=== PATIENT | male | born 1940 | race Caucasian/White ===

== ENCOUNTER 2017-06-18 16:37 | Inpatient (IN) | payer MEDICARE, OTHER ==
[2017-06-18] MEDS ORDERED: Sodium Chloride 0.9% 1,000 ML IV ONE ×2 (16:55→20:03)
--- NOTE | 2017-06-18 17:21 | ED Physician Chart ---
ED Chief Complaint/HPI - Patient Information Date Seen:: 06/18/17 Time Seen:: 17:00 Chief Complaint:: Weakness History of Present Illness:: onset x 2 days of weakness, dizziness, N/V x 3; no report of trauma, H/As, S/T, neck pain, cough, C/P, SOB, Abd. Pain, A/D/C, fever, chills, or urinary s/s Allergies:: Allergies Allergy/AdvReac Type Severity Reaction Status Date / Time No Known Allergies Allergy Verified 02/22/16 13:57 Vitals:: Vital Signs - 8 hr 06/18/17 17:00 Temp 97.2 F HR 80 RR 16 BP 107/75 O2 Sat % 100 Historian:: Patient, EMS Review:: Nurse's Note Reviewed, Old Chart Reviewed, EMS run form Reviewed <Mathieu Leal - Last Filed: 06/18/17 18:10> - Patient Information Allergies:: Allergies Allergy/AdvReac Type Severity Reaction Status Date / Time No Known Allergies Allergy Verified 02/22/16 13:57 Vitals:: Vital Signs - 8 hr 06/18/17 06/18/17 06/18/17 17:00 18:48 21:32 Temp 97.2 F 99 F 98.6 F HR 80 84 88 RR 16 18 17 BP 107/75 147/77 143/84 O2 Sat % 100 100 98 <Chad Sun - Last Filed: 06/18/17 23:32> ED Review of Systems - Review of Systems General/Constitutional: No fever, No chills, No weight loss, Weakness, No diaphoresis, No edema, No loss of appetite Skin: No skin lesions, No rash, No bruising Head: No headache, No light-headedness Eyes: No loss of vision, No pain, No diplopia ENT: No earache, No nasal drainage, No sore throat, No tinnitus Neck: No neck pain, No swelling, No thyromegaly, No stiffness, No mass noted Cardio Vascular: No chest pain, No palpitations, No PND, No orthopnea, No edema Pulmonary: No SOB, No cough, No sputum, No wheezing GI: Nausea, Vomiting, Diarrhea, No pain, No melena, No hematochezia, No constipation, No hematemesis G/U: No dysuria, No frequency, No hematuria Musculoskeletal: No bone or joint pain, No back pain, No muscle pain Endocrine: No polyuria, No polydipsia Psychiatric: Prior psych history, No depression, Anxiety, No suicidal ideation, No homicidal ideation, No auditory hallucination, No visual hallucination Hematopoietic: No bruising, No lymphadenopathy Allergic/Immuno: No urticaria, No angioedema Neurological: No syncope, No focal symptoms, Weakness, No paresthesia, No headache, No seizure, Dizziness, No confusion, Vertigo <Mathieu Leal - Last Filed: 06/18/17 18:10> ED Past Medical History - Past Medical History Obtainable: Yes Past Medical History: HTN, Dyslipidemia, Arthritis Family History: HTN Social History: Smoker, Alcohol, No Drug Use, Single, Care Facility Surgical History: None Psychiatricy History: Bipolar Medication: Reviewed <Mathieu Leal - Last Filed: 06/18/17 18:10> Family Medical History - Family Member Mother History Unknown: Yes Ethnicity: <Mathieu Leal - Last Filed: 06/18/17 18:10> ED Physical Exam - Physical Examination General/Constitutional: Awake, Well-developed, well-nourished, Alert, No distress, GCS 15, Non-toxic appearing, Ambulatory Head: Atraumatic Eyes: Lids, conjuctiva normal, PERRL, EOMI Skin: Nl inspection, No rash, No skin lesions, No ecchymosis, Well hydrated, No lymphadenopathy ENMT: External ears, nose nl, TM canals nl, Nasal exam nl, Lips, teeth, gums nl , Oropharynx nl, Tonsils nl Neck: Nontender, Full ROM w/o pain, No JVD, No nuchal rigidity, No bruit, No mass, No stridor Respiratory: Nl effort/Exclusion, Clear to Auscultation, No Wheeze/Rhonchi/Rales Cardio Vascular: RRR, No murmur, gallop, rubs, NL S1 S2, Carotid/Femoral/Distal pulses equal bilaterally GI: No organomegaly, No hernia, Normal BS's, Nondistended, No mass/bruits, No McBurney tenderness, Rectum exam nl Other GI comments:: + Epigastric Tenderness : No CVA tenderness Extremities: No tenderness or effusion, Full ROM, normal strength in all extremities, No edema, Normal digits & nails Neuro/Psych: Alert/oriented, DTR's symmetric, Normal sensory exam, Normal motor strength, Judgement/insight normal, Mood normal, Normal gait, No focal deficits Misc: Normal back, No paraspinal tenderness <Mathieu Leal - Last Filed: 06/18/17 18:10> ED Labs/Radiology/EKG Results - Lab Results Comments:: WBC: 12.4; H/H: + Anemia; Amylase: 831; Lipase: 1148; LFTs: Elevated <Mathieu Leal - Last Filed: 06/18/17 18:10> - Lab Results Results: Laboratory Tests 06/18/17 06/18/17 06/18/17 17:07 17:07 17:07 WBC 12.4 H RBC 4.65 Hgb 11.3 L Hct 35.0 L MCV 75.3 L MCH 24.3 L MCHC Differential 32.3 RDW 16.3 Plt Count 187 MPV 7.6 Band Neutrophils % 1 Neutrophils (Manual) 72 Lymphocytes 9 L Monocytes 18 H Eosinophils 0 Basophils 0 Microcytosis 2+ PT INR PTT (Actin FS) Sodium 136 Potassium 3.6 Chloride 102 Carbon Dioxide 23.9 Anion Gap 13.7 BUN 15 Creatinine 1.0 Est GFR ( Amer) TNP Est GFR (Non-Af Amer) TNP BUN/Creatinine Ratio 15.0 Glucose 115 H Whole Bld Lactic Acid Calcium 9.3 Total Bilirubin 1.1 H AST 135 H ALT 255 H Alkaline Phosphatase 257 H Creatine Kinase 28 L Troponin I B-Natriuretic Peptide 54.1 Total Protein 7.3 Albumin 4.1 L Globulin 3.2 Albumin/Globulin Ratio 1.3 Triglycerides 85 Cholesterol 172 LDL Cholesterol Direct 92 HDL Cholesterol 52 Amylase 831 H Lipase 1148 H Urine Source Urine Color Urine Clarity Urine pH Ur Specific [place] Urine Protein Urine Glucose (UA) Urine Ketones Urine Blood Urine Nitrate Urine Bilirubin Urine Urobilinogen Ur Leukocyte Esterase Urine RBC Urine WBC Ur Epithelial Cells Urine Bacteria Ethyl Alcohol 06/18/17 06/18/17 06/18/17 17:07 17:07 17:07 WBC RBC Hgb Hct MCV MCH MCHC Differential RDW Plt Count MPV Band Neutrophils % Neutrophils (Manual) Lymphocytes Monocytes Eosinophils Basophils Microcytosis PT 10.7 INR 1.03 PTT (Actin FS) 28.1 Sodium Potassium Chloride Carbon Dioxide Anion Gap BUN Creatinine Est GFR ( Amer) Est GFR (Non-Af Amer) BUN/Creatinine Ratio Glucose Whole Bld Lactic Acid 1.04 Calcium Total Bilirubin AST ALT Alkaline Phosphatase Creatine Kinase Troponin I 0.01 B-Natriuretic Peptide Total Protein Albumin Globulin Albumin/Globulin Ratio Triglycerides Cholesterol LDL Cholesterol Direct HDL Cholesterol Amylase Lipase Urine Source Urine Color Urine Clarity Urine pH Ur Specific [place] Urine Protein Urine Glucose (UA) Urine Ketones Urine Blood Urine Nitrate Urine Bilirubin Urine Urobilinogen Ur Leukocyte Esterase Urine RBC Urine WBC Ur Epithelial Cells Urine Bacteria Ethyl Alcohol 06/18/17 06/18/17 17:07 18:20 WBC RBC Hgb Hct MCV MCH MCHC Differential RDW Plt Count MPV Band Neutrophils % Neutrophils (Manual) Lymphocytes Monocytes Eosinophils Basophils Microcytosis PT INR PTT (Actin FS) Sodium Potassium Chloride Carbon Dioxide Anion Gap BUN Creatinine Est GFR ( Amer) Est GFR (Non-Af Amer) BUN/Creatinine Ratio Glucose Whole Bld Lactic Acid Calcium Total Bilirubin AST ALT Alkaline Phosphatase Creatine Kinase Troponin I B-Natriuretic Peptide Total Protein Albumin Globulin Albumin/Globulin Ratio Triglycerides Cholesterol LDL Cholesterol Direct HDL Cholesterol Amylase Lipase Urine Source [place] Urine Color DARK YELLOW Urine Clarity CLEAR Urine pH 6.5 Ur Specific [place] 1.025 Urine Protein 30 H Urine Glucose (UA) NEGATIVE Urine Ketones 15 H Urine Blood SMALL H Urine Nitrate NEGATIVE Urine Bilirubin NEGATIVE Urine Urobilinogen >=8.0 H Ur Leukocyte Esterase NEGATIVE Urine RBC 2-5 H Urine WBC 0-2 Ur Epithelial Cells RARE Urine Bacteria NONE SEEN Ethyl Alcohol < 10 - Radiology Results Results: CT abdomen: pneumobilia, pancreatitis <Chad Sun - Last Filed: 06/18/17 23:32> ED Septic Shock - . Is Septic Shock (SBP<90, OR Lactate>4 mmol\L) present?: No - <6hrs of presentation: Vital Signs: Vital Signs - 8 hr 06/18/17 17:00 Temp 97.2 F HR 80 RR 16 BP 107/75 O2 Sat % 100 <Mathieu Leal - Last Filed: 06/18/17 18:10> - . Is Septic Shock (SBP<90, OR Lactate>4 mmol\L) present?: No - <6hrs of presentation: Vital Signs: Vital Signs - 8 hr 06/18/17 06/18/17 06/18/17 17:00 18:48 21:32 Temp 97.2 F 99 F 98.6 F HR 80 84 88 RR 16 18 17 BP 107/75 147/77 143/84 O2 Sat % 100 100 98 <Chad Sun - Last Filed: 06/18/17 23:32> ED Reassessment (Disposition) - Diagnosis Diagnosis:: Dx: Abdominal Pain; N/V; Pancreatitis; Anemia; Leukocytosis; Hepatiitis; Cholecystitis <Mathieu Leal - Last Filed: 06/18/17 18:10> - Reassessment Reassessment:: Assessment: Leukocytosis, pneumobilia, pancreatitis Plan: Rocephin, Flagyl, NS IV bolus, admit to med surg Reassessment Condition:: Improved - Patient Disposition Discharge/Transfer:: Acute Care w/in this hosp Admitting Medical Physician:: Gene Quintanilla <Chad Sun - Last Filed: 06/18/17 23:32> ED Discharge Plan <Mathieu Leal - Last Filed: 06/18/17 18:10> <Chad Sun - Last Filed: 06/18/17 23:32> - Patient Disposition Admit/Discharge/Transfer: Acute Care w/in this hosp
[2017-06-18 17:28] LABS: HEMOGLOBIN 11.3 gm/dL (12-16); MANUAL DIFF REQUIRED? YES; MEAN CELL VOLUME 75.3 fl (80-99); MEAN CORPUSCULAR HEMOGLOBIN 24.3 pg (27.0-31.0); MEAN CORPUSCULAR HGB CONC 32.3 pg (28.0-36.0); MEAN PLATELET VOLUME 7.6 fl; PLATELET COUNT 187 Th/cmm (150-400); RED BLOOD COUNT 4.65 Mil/cmm (3.80-5.80); RED CELL DISTRIBUTION WIDTH 16.3 % (11.5-20.0)
[2017-06-18 17:37] LABS: INR 1.03 (0.5-1.4); PROTHROMBIN TIME (TEST) 10.7 SECONDS (9.5-11.5)
[2017-06-18 17:38] LABS: WHITE BLOOD COUNT 12.4 Th/cmm (4.8-10.8)
[2017-06-18 17:44] LABS: ALB/GLOB RATIO 1.3 (1.0-1.8); ALBUMIN 4.1 gm/dL (4.2-5.5); ALKALINE PHOSPHATASE 257 U/L (34-104); AMYLASE SERUM 831 U/L (29-103); ANION GAP 13.7 (7.0-16.0); BILIRUBIN,TOTAL 1.1 mg/dL (0.3-1.0); BUN - UREA NITROGEN 15 mg/dL (7-25); CALCIUM SERUM 9.3 mg/dL (8.6-10.3); CARBON DIOXIDE 23.9 mEq/L (21.0-31.0); CHLORIDE 102 mEq/L (98-107); CHOLESTEROL 172 mg/dL (<200); CREATININE KINASE 28 U/L (30-223); GLUCOSE 115 mg/dL (70-105); HDL -HIGH DENSITY LIPOPROTEIN 52 mg/dL (23-92); POTASSIUM SERUM 3.6 mEq/L (3.5-5.1); SGOT 135 U/L (13-39); SGPT/ALT 255 U/L (7-52); SODIUM SERUM 136 mEq/L (136-145); TOTAL PROTEIN,SERUM 7.3 gm/dL (6.0-8.3); TRIGLYCERIDES 85 mg/dL (<150)
[2017-06-18 17:57] LABS: LIPASE 1148 U/L (11-82)
[2017-06-18 18:22] LABS: BAND NEUTROPHILE 1 % (0-10); BASOPHIL 0 % (0-3); EOSINOPHIL 0 % (0-5); LYMPHOCYTE 9 % (20-50); MONOCYTE 18 % (2-10); NEUTROPHILS 72 % (40-80); TOTAL CELLS COUNTED 100
[2017-06-18 18:36] LABS: URINE MICROSCOPIC INDICATED? YES; URINE SOURCE MIDSTREAM
[2017-06-18 18:37] LABS: URINE BLOOD SMALL (NEGATIVE); URINE GLUCOSE (UA) NEGATIVE (NEGATIVE); URINE KETONE 15 mg/dL (NEGATIVE); URINE LEUKOCYTE ESTERASE NEGATIVE (NEGATIVE); URINE NITRATE NEGATIVE (NEGATIVE); URINE PH 6.5 (4.6 - 8.0); URINE PROTEIN 30 mg/dL (NEGATIVE); URINE UROBILINOGEN >=8.0 E.U./dL (0.2 - 1.0)
[2017-06-18 18:52] LABS: URINE CLARITY CLEAR (CLEAR); URINE COLOR DARK YELLOW
[2017-06-18 18:53] LABS: URINE BACTERIA NONE SEEN /hpf (NONE SEEN); URINE BILIRUBIN NEGATIVE (NEGATIVE); URINE EPITHELIAL CELLS RARE /lpf (FEW); URINE WBC 0-2 /hpf (0-5)
[2017-06-18] MEDS ORDERED: cefTRIAXone 1 GM in Sodium Chloride 0.9% 50 ML IV ONE (20:01)
[2017-06-18] MEDS ORDERED: metroNIDAZOLE 500mg/NS 100mL 500 MG/100 ML BAG IV ONE ×2 (20:02→20:33)
[2017-06-18 22:17] VITALS: BP 121/68
[2017-06-18] MEDS: D5-0.45NS 1,000 ML IV SCH (22:50)
[2017-06-18] MEDS ORDERED: Piperacillin Sodium/Tazobact 3.375 gm Vial IV ONE (23:19)
[2017-06-19] MEDS ORDERED: Piperacillin Sodium/Tazobact 3.375 gm Vial IV ONE (05:24)
--- NOTE | 2017-06-19 08:07 | Diagnostic Imaging Report ---
CHEST X-RAY: AP view INDICATION: Weakness COMPARISON: Chest x-ray 02/22/2016 FINDINGS: Multiple old displaced right rib fractures are noted. No focal consolidation or effusions. There is mild elevation of the right hemidiaphragm. Heart size is normal. Atherosclerosis is noted. Degenerative changes spine and shoulders are noted. IMPRESSION: No focal consolidation identified Redemonstration of multiple displaced old right rib fractures. No evidence of pneumothorax.
--- NOTE | 2017-06-19 08:17 | Diagnostic Imaging Report ---
Exam: CT examination abdomen pelvis HISTORY: Abdominal pain nausea vomiting Total DLP equals 564 CTDI equals 11.1 Findings: Multiple contiguous thin section of the abdomen pelvis obtained from lower thorax to pubic symphysis with without the administration of intravenous or oral contrast material. The study compared to prior 02/24/2016. The study demonstrates deformity of the right rib cage with old fractures. There is evidence of pleural thickening bilaterally question small effusions. There is evidence of basilar atelectasis. There is evidence for pneumobilia. Hernia is noted. The spleen is enlarged. The adrenal glands are normal. The kidneys demonstrate no evidence of obstructive uropathy or nephrolithiasis. Abdominal aorta is calcified. The visualized pancreas history smell edema around the tail pancreatitis cannot be excluded clinical correlation recommended. There is evidence for fecal impaction in lower: With the fecal impaction the rectum. Mild diverticular disease is noted without diverticulitis. There is no evidence of free fluid collection. The urinary bladder is distended. Prostate gland is enlarged. There is evidence of scoliosis of the lumbar spine to the right degenerative changes of lumbar cervical spine appreciated. IMPRESSION: Pleural thickening bilaterally, small effusions cannot be excluded. Hiatal hernia Atherosclerotic vascular calcifications. Pneumobilia Fullness and inflammatory induration of the mesentery around the tail of the pancreas, pancreatitis cannot be excluded clinical correlation recommended. Mild diverticulosis Fecal impaction the rectum
[2017-06-19 10:30] LABS: BASOPHILE ABSOLUTE 0.4 Th/cumm (0-0.2); HEMATOCRIT 31.5 % (41.0-60); HEMOGLOBIN 10.2 gm/dL (12-16); LYMPHOCYTE ABSOLUTE 1.1 Th/cmm (1.5-3.0); MEAN CELL VOLUME 75.8 fl (80-99); MEAN CORPUSCULAR HEMOGLOBIN 24.6 pg (27.0-31.0); MEAN CORPUSCULAR HGB CONC 32.4 pg (28.0-36.0); MEAN PLATELET VOLUME 7.4 fl; MONOCYTE ABSOLUTE 2.7 Th/cmm (0.3-1.0); NEUTROPHILE ABSOLUTE 7.5 Th/cmm (1.8-8.0); PLATELET COUNT 156 Th/cmm (150-400); RED BLOOD COUNT 4.15 Mil/cmm (3.80-5.80); RED CELL DISTRIBUTION WIDTH 16.5 % (11.5-20.0); WHITE BLOOD COUNT 11.7 Th/cmm (4.8-10.8)
[2017-06-19 10:33] LABS: % BASOPHILS 3.2 % (0.0-2.0); % EOSINOPHILS 0.3 % (0.0-5.0); % LYMPHOCYTES 9.7 % (20.0-50.0); % MONOCYTES 22.9 % (2.0-10.0); % NEUTROPHILS 63.9 % (40.0-80.0)
[2017-06-19 10:49] LABS: ALB/GLOB RATIO 1.2 (1.0-1.8); ALBUMIN 3.5 gm/dL (4.2-5.5); ALKALINE PHOSPHATASE 175 U/L (34-104); AMYLASE SERUM 201 U/L (29-103); ANION GAP 12.1 (7.0-16.0); BILIRUBIN,TOTAL 1.1 mg/dL (0.3-1.0); BUN - UREA NITROGEN 11 mg/dL (7-25); CALCIUM SERUM 8.2 mg/dL (8.6-10.3); CARBON DIOXIDE 22.2 mEq/L (21.0-31.0); CHLORIDE 102 mEq/L (98-107); GLUCOSE 116 mg/dL (70-105); LIPASE 219 U/L (11-82); POTASSIUM SERUM 3.3 mEq/L (3.5-5.1); SGOT 48 U/L (13-39); SGPT/ALT 150 U/L (7-52); SODIUM SERUM 133 mEq/L (136-145); TOTAL PROTEIN,SERUM 6.5 gm/dL (6.0-8.3)
[2017-06-19] MEDS: D5-0.45NS 1,000 ML IV SCH ×2 (11:37→23:48)
--- NOTE | 2017-06-19 11:55 | History & Physical ---
ADMIT DATE: 06/19/2017 PATIENT IDENTIFICATION: A 77-year-old male. CHIEF COMPLAINT: Abdominal pain, nausea, and vomiting. HISTORY OF PRESENT ILLNESS: A 77-year-old [place]iqu[place] male who was a resident of [facility], has been followed by myself and my nurse practitioner, noticed by nursing staff that the patient has been having vomiting and abdominal pain with generalized weakness. The patient was not to his baseline as compared to his previous baseline mental status for the last 2 days. The patient was sent to Emergency Room where the patient was seen by Emergency Room Andrea. CT scan of the abdomen and pelvis was done, which did reveal the patient had a hiatal hernia, atherosclerotic vascular calcification, fullness, and inflammatory induration of the mesentery around the tail of pancreas along with pneumobilia diverticulosis, and fecal impaction was noted as well. The patient was also noted to have elevated WBC count with abnormal liver function tests. The patient is now being admitted to the hospital for further treatment. PAST MEDICAL HISTORY: Remarkable for: 1. Osteoarthritis. 2. DJD. 3. Restless leg syndrome. 4. Anxiety disorder. MEDICATIONS AT HOME: Taking multivitamin, folic acid, thiamine, [place], and Requip. ALLERGIES: The patient is not allergic to any medication. SOCIAL HISTORY: He [facility] in a [facility]. The patient denies any smoking cigarette, used to drink alcohol socially. FAMILY MEDICAL HISTORY: Negative for diabetes, hypertension, kidney, or liver disease. REVIEW OF SYSTEMS: The patient has a poor appetite. Denies any headache, blurred vision, double vision, dysphagia. Denies any chest pain, denies any shortness of breath. Denies any hematemesis. Denies any hematochezia, melena, seizure, or syncopal episode. PHYSICAL EXAMINATION: GENERAL: The patient is alert, awake, oriented, lying in the bed without any acute distress. VITAL SIGNS: Temperature 99, pulse is 80, respiratory rate 18, blood pressure 130/80. HEENT: Normocephalic, atraumatic. Extraocular muscles are intact. Tongue was pink and coated. Poor dentition noted. No oral lesion, no exudate. No sinus tenderness. External auditory canal and tympanic membranes are well visualized. NECK: Supple, no JVD, no hepatojugular reflex. No lymphadenopathy, thyromegaly or carotid bruit. HEART: Both heart sounds are regular. No S3, no S4, no murmur. CHEST: Lungs equal in expansion, no expiratory wheezing. ABDOMEN: Soft. Significant tenderness at the epigastric area and right upper quadrant area noted. Bowel sounds are present. No palpable mass. EXTREMITIES: No edema, no cyanosis, no clubbing. Pulses are +2. No calf tenderness noted. NEUROLOGIC: Limited, but nonfocal. LABORATORY DATA: Available lab and radiological study has been reviewed. CLINICAL IMPRESSION: 1. Acute pancreatitis. 2. Abnormal liver function tests with pneumobilia. CT scan of the abdomen and pelvis needs to rule out for cholelithiasis with common bile duct stone. 3. Fecal impaction. 4. Leukocytosis. 5. Degenerative joint disease. 6. Benign prostatic hypertrophy. 7. Restless leg syndrome. 8. Gastroesophageal reflux disease and gastritis. PLAN: 1. Admit this patient to Med/Surg floor. 2. N.p.o. 3. IV fluid. 4. IV antibiotic. 5. Proton pump inhibitor. 6. Symptoms management. 7. Abdominal ultrasound and HIDA scan. 8. GI consultation. 9. Follow lab. 10. Follow consult recommendation. 11. Appropriate home medicine reconciliation. 12. Further recommendation once other lab data are available. 13. Care plan reviewed and discussed with the patient and RN. JOB# [id number]
--- NOTE | 2017-06-19 12:10 | Diagnostic Imaging Report ---
Ultrasound abdomen HISTORY: Gallstones, note is made of diffuse pneumobilia. The patient's gallbladder was not visualized on recent CT examination. COMPARISON: CT abdomen and pelvis on 06/18/2017 Technique: Sonography of the abdomen was performed in multiple planes. FINDINGS: Exam is limited due to bowel gas and body habitus. The liver demonstrates normal echogenicity and measures 15.3 cm. The liver margin is not well-defined, however, no evidence of focal lesions. The gallbladder was not visualized. The common bile duct was also not well visualized. Assessment of pancreas is limited due to bowel gas. Limited assessment of the kidneys demonstrate no evidence of hydronephrosis. Assessment for focal lesions was limited on this exam. The spleen measures 11.4 cm. The visualized portion of the abdominal aorta within normal limits in size. IMPRESSION: Limited exam due to bowel gas and body habitus. The gallbladder was not visualized. Note that the gallbladder was also not visualized on recent CT examination. Diffuse pneumobilia was also noted on recent CT exam. The patient may be status post cholecystectomy. Please correlate with patient's clinical and surgical history. The common bile duct was also not visualized. Note was also made of diffuse air in the common bile duct on recent CT examination.
[2017-06-19] MEDS: Morphine Sulfate 4 mg/mL 1mL Syr IVP PRN (20:25)
--- NOTE | 2017-06-20 00:48 | Consultation ---
DATE OF CONSULTATION: 06/19/2017 REASON FOR CONSULTATION: Pancreatitis. HISTORY OF PRESENT ILLNESS: This consult was obtained through the request of Dr. Quintanilla for this 77-year-old with history of osteoarthritis, degenerative joint disease, anxiety, who was admitted for a couple of days of nausea, vomiting, abdominal pain, and right now he feels much better, with less pain and no more nausea or vomiting. The patient denies any prior episodes. He denies any previous surgeries, even though the x-ray showed pneumobilia. The patient denies having any fever or weight loss. PAST MEDICAL HISTORY: Degenerative joint disease, osteoarthritis, anxiety disorder. PAST SURGICAL HISTORY: Denies. SOCIAL HISTORY: Nonsmoker. Drinks a fifth every 1-2 weeks. Denies drug abuse. FAMILY HISTORY: Noncontributory. MEDICATIONS: At home, multivitamin, folic acid, thiamine, [place], Requip. ALLERGIES: No known drug allergies. REVIEW OF SYSTEMS: As stated above. Denies any abdominal pain, nausea, vomiting, diarrhea, constipation, bleeding. PHYSICAL EXAMINATION: GENERAL: The patient is awake, oriented to self, place, and time, in no acute distress. VITAL SIGNS: Blood pressure is 119/61, heart rate 60, respiratory rate 18, temperature is 98.7, with T-max 100.9. HEAD AND NECK: Pupils reactive to light. Extraocular muscles intact. Sclerae are anicteric. Conjunctivae not pale. Oral cavity, no lesion. NECK: Supple. CHEST: Good air entry. LUNGS: Clear to auscultation. CARDIOVASCULAR: Regular rate and rhythm. No murmur or gallop. ABDOMEN: Soft, positive bowel sounds, not tender, not distended. EXTREMITIES: Lower extremities, no edema. CENTRAL NERVOUS SYSTEM: Grossly nonfocal. LABORATORY DATA: Bilirubin is 1.1, AST 48 down from 135, ALT 150 down from 255, alkaline phosphatase 175 down from 257, and lipase on presentation was 1148 now is 219. X-ray as stated above showed pneumobilia, no visualization of the gallbladder. IMPRESSION: A 77-year-old who has pancreatitis and pneumobilia. ASSESSMENT AND PLAN: Abdominal pain, nausea, vomiting and elevation of lipase consistent with pancreatitis, most likely etiology would be common bile duct stones, but cannot exclude autoimmune, cannot exclude masses, but given the pneumobilia common bile duct stones would be the first on the list, so we will recheck labs in the morning including liver enzymes and lipase. We will check MRCP and then further recommendations to follow. ____ pneumobilia, this is consistent with either previous intervention or instrumentation of the bile duct either by surgery or by scope or some sort of internal fistulas. We will get an MRCP and then further recommendations to follow. If patient is better, then we will start feeding. Other medical problems such as osteoarthritis, degenerative joint disease, anxiety, etc., as per Dr. Quintanilla. Thank you, Dr. Quintanilla for allowing me to participate in the care of the patient. If you have any further questions, please let me know. JOB# [id number]
--- NOTE | 2017-06-20 07:42 | Diagnostic Imaging Report ---
Radionuclide biliary scan (HIDA scan) HISTORY: Pain 4.9 mCi technetium labeled biliary agent used in the exam. The exam demonstrates normal hepatic uptake and clearance. There is normal excretion of nuclide into the common bile duct and small bowel. The gallbladder is not identified. The findings should be correlated with the patient's surgical history. (Supposedly prior cholecystectomy). IMPRESSION: 1. Nonvisualization of the gallbladder. This should be confirmed with patient's surgical history of a prior cholecystectomy.
[2017-06-20 11:29] LABS: BASOPHILE ABSOLUTE 0.1 Th/cumm (0-0.2); EOSINOPHILE ABSOLUTE 0.1 Th/cmm (0.1-0.4); LYMPHOCYTE ABSOLUTE 0.9 Th/cmm (1.5-3.0); MANUAL DIFF REQUIRED? YES; MEAN CELL VOLUME 74.5 fl (80-99); MEAN CORPUSCULAR HEMOGLOBIN 23.9 pg (27.0-31.0); MEAN CORPUSCULAR HGB CONC 32.1 pg (28.0-36.0); MEAN PLATELET VOLUME 7.4 fl; MONOCYTE ABSOLUTE 1.5 Th/cmm (0.3-1.0); NEUTROPHILE ABSOLUTE 4.1 Th/cmm (1.8-8.0); PLATELET COUNT 138 Th/cmm (150-400); RED BLOOD COUNT 3.76 Mil/cmm (3.80-5.80); RED CELL DISTRIBUTION WIDTH 16.7 % (11.5-20.0); WHITE BLOOD COUNT 6.7 Th/cmm (4.8-10.8)
[2017-06-20 11:47] LABS: ALB/GLOB RATIO 1.1 (1.0-1.8); ALBUMIN 3.3 gm/dL (4.2-5.5); ALKALINE PHOSPHATASE 133 U/L (34-104); ANION GAP 11.5 (7.0-16.0); BILIRUBIN,TOTAL 0.8 mg/dL (0.3-1.0); BUN - UREA NITROGEN 8 mg/dL (7-25); CALCIUM SERUM 7.9 mg/dL (8.6-10.3); CARBON DIOXIDE 20.5 mEq/L (21.0-31.0); CHLORIDE 104 mEq/L (98-107); CHOLESTEROL 126 mg/dL (<200); CREATININE - SERUM 0.9 mg/dL (0.7-1.3); GLUCOSE 113 mg/dL (70-105); HDL -HIGH DENSITY LIPOPROTEIN 29 mg/dL (23-92); LIPASE 80 U/L (11-82); SGOT 21 U/L (13-39); SGPT/ALT 95 U/L (7-52); SODIUM SERUM 133 mEq/L (136-145); TOTAL PROTEIN,SERUM 6.2 gm/dL (6.0-8.3); TRIGLYCERIDES 98 mg/dL (<150)
[2017-06-20 12:07] LABS: BAND NEUTROPHILE 1 % (0-10); EOSINOPHIL 2 % (0-5); LYMPHOCYTE 12 % (20-50); MONOCYTE 21 % (2-10); NEUTROPHILS 64 % (40-80); PLATELET ESTIMATE ADEQUATE (NORMAL); TOTAL CELLS COUNTED 100
[2017-06-20] MEDS ORDERED: Potassium Chloride 20 mEq ER Tab PO ONE (12:50)
--- NOTE | 2017-06-20 14:34 | Diagnostic Imaging Report ---
Magnetic Resonance Cholepancreatography (MRCP) HISTORY: Pain, pneumobilia Multiple MRI sequences including 3-D high-resolution thin/thick slab, SPGR were utilized. The exam is very limited due to motion artifact. The gallbladder is not identified. Findings consistent with a prior cholecystectomy. There is suboptimal delineation and visualization of the common bile duct. No obvious dilatation. No intrahepatic biliary dilatation. There is partial visualization of the pancreatic duct appears normal. No focal hepatic parenchymal lesions are seen. The spleen appears normal. No focal parenchymal abnormality seen within the pancreas. There is a moderate to large hiatal hernia seen. IMPRESSION: 1. Very limited exam due to motion artifact 2. Nonvisualization of the gallbladder presumably related to prior surgery. 3. Poor visualization of the common bile duct. No definite biliary dilatation is seen. 4. Hiatal hernia
[2017-06-20] MEDS: D5-0.45NS 1,000 ML IV SCH (16:14)
--- NOTE | 2017-06-20 21:32 | Progress Notes ---
DATE: SUBJECTIVE: The patient seen and examined. The patient has no new complaint. The patient now on clear liquid diet. HIDA scan was negative for common bile duct obstruction. The patient is scheduled to have MRCP done. The patient currently denies any new complaint. PHYSICAL EXAMINATION: VITAL SIGNS: Temperature 97.4, pulse 60, respiratory rate 18, blood pressure 116/68. HEENT: No facial asymmetry. NECK: Supple, no JVD. HEART: Regular, no murmur. CHEST AND LUNGS: Equal in expansion, no wheezing, no crackles. ABDOMEN: Soft. Epigastric tenderness noted. Bowel sounds are present. EXTREMITIES: No edema. NEUROLOGIC: Nonfocal. CLINICAL IMPRESSION: 1. Pancreatitis. 2. Pneumobilia. 3. Hypokalemia. 4. Degenerative joint disease. 5. Gastroesophageal reflux disease. 6. Chronic pain syndrome. 7. Benign prostatic hypertrophy. PLAN: 1. MRCP is currently pending. 2. Clear liquids to be continued. 3. Replace potassium. 4. Follow GI recommendation. 5. Continue other medicine as prescribed. 6. Follow up lab. 7. Follow up consult is recommendation. 8. Care plan review and discussed. JOB# [id number]
[2017-06-21] MEDS: D5-0.45NS 1,000 ML IV SCH ×2 (03:35→17:38)
[2017-06-21] MEDS: Morphine Sulfate 4 mg/mL 1mL Syr IVP PRN (08:10)
--- NOTE | 2017-06-21 09:46 | Progress Notes ---
DATE: 06/21/2017 SUBJECTIVE: The patient seen and examined. The patient is lying in the bed. The patient did have MRCP, which was unremarkable. The patient currently denies any chest pain, shortness of breath, palpitation, or dizziness. The patient is currently on clear liquid diet, tolerating fairly well. The patient complained of diffuse joint pain. PHYSICAL EXAMINATION: VITAL SIGNS: Temperature 96.3, pulse 62, respiratory rate 18, blood pressure 130/78. HEENT: No facial asymmetry. NECK: Supple, no JVD. HEART: Regular, no murmur. CHEST: Lungs equal in expansion, no wheezing, no crackles. ABDOMEN: Soft. No guarding, rigidity. No tenderness. Bowel sounds are present. EXTREMITIES: No edema. NEUROLOGICAL: Nonfocal. AVAILABLE DIAGNOSTIC DATA: White count 6.7, hemoglobin 9, platelet count 138. Potassium of 3, BUN and creatinine ___ 0.9. LFT has come down to AST 121, ALT is 95, alkaline phosphatase of 133. CLINICAL IMPRESSION: 1. Pneumobilia. 2. Abnormal liver function tests. 3. Pancreatitis, resolved. 4. Diffuse degenerative joint disease. 5. Benign prostatic hypertrophy. 6. Microcytic hypochromic anemia. 7. Degenerative joint disease. PLAN: 1. Replace potassiums. 2. Advance diet. 3. Decrease IV fluid. 4. Symptoms management for joint pain. 5. Anemia workup. 6. Increase activity. 7. General nursing care. 8. Follow lab. 9. The patient tolerated fairly well, discharge planning to home. JOB# [id number]
[2017-06-21] MEDS ORDERED: Potassium Chloride 20 mEq ER Tab PO ONE (11:00)
[2017-06-21] MEDS ORDERED: Probiotic Screen MC PRN (11:17)
[2017-06-22] MEDS: D5-0.45NS 1,000 ML IV SCH (06:51)
[2017-06-22 08:07] LABS: IRON LC 19 ug/dL (38-169); TIBC (LC) 257 ug/dL (250-450); UIBC 238 ug/dL (111-343)
[2017-06-22] MEDS: Hydrocodone/APAP 10 mg/325 mg Tab PO PRN ×2 (08:15→15:02)
[2017-06-22] MEDS ORDERED: Lactobacillus Rhamnosus GG 15 Billion CFU CAP.SPRINK PO SCH (09:00)
[2017-06-22 09:36] LABS: % BASOPHILS 0.9 % (0.0-2.0); % EOSINOPHILS 1.2 % (0.0-5.0); % MONOCYTES 14.6 % (2.0-10.0); % NEUTROPHILS 62.3 % (40.0-80.0); BASOPHILE ABSOLUTE 0.1 Th/cumm (0-0.2); EOSINOPHILE ABSOLUTE 0.1 Th/cmm (0.1-0.4); HEMATOCRIT 30.8 % (41.0-60); LYMPHOCYTE ABSOLUTE 1.3 Th/cmm (1.5-3.0); MEAN CELL VOLUME 75.3 fl (80-99); MEAN CORPUSCULAR HEMOGLOBIN 24.3 pg (27.0-31.0); MEAN CORPUSCULAR HGB CONC 32.3 pg (28.0-36.0); MONOCYTE ABSOLUTE 0.9 Th/cmm (0.3-1.0); PLATELET COUNT 161 Th/cmm (150-400); RED CELL DISTRIBUTION WIDTH 16.7 % (11.5-20.0); WHITE BLOOD COUNT 6.4 Th/cmm (4.8-10.8)
[2017-06-22 09:52] LABS: ALB/GLOB RATIO 1.1 (1.0-1.8); ALBUMIN 3.5 gm/dL (4.2-5.5); ALKALINE PHOSPHATASE 108 U/L (34-104); ANION GAP 13.5 (7.0-16.0); BILIRUBIN,TOTAL 0.6 mg/dL (0.3-1.0); BUN - UREA NITROGEN 5 mg/dL (7-25); CALCIUM SERUM 8.3 mg/dL (8.6-10.3); CARBON DIOXIDE 19.9 mEq/L (21.0-31.0); CHLORIDE 106 mEq/L (98-107); GLUCOSE 218 mg/dL (70-105); POTASSIUM SERUM 3.4 mEq/L (3.5-5.1); SGOT 19 U/L (13-39); SGPT/ALT 64 U/L (7-52); SODIUM SERUM 136 mEq/L (136-145); TOTAL PROTEIN,SERUM 6.7 gm/dL (6.0-8.3)
[2017-06-22] MEDS ORDERED: Potassium Chloride 20 mEq ER Tab PO ONE (11:21)
[2017-06-22] MEDS ORDERED: Polyvinyl Alcohol Ophth Soln 15 mL Bottle EACH EYE PRN (11:22)
--- NOTE | 2017-06-22 12:18 | Discharge Summary ---
DATE OF DISCHARGE: 06/22/2017 DATE OF ADMISSION: 06/18/2017 DATE OF DISCHARGE: 06/22/2017 PRINCIPAL DIAGNOSES: 1. Acute pancreatitis. 2. Abnormal liver function test with pneumobilia. 3. Fecal impaction. 4. Leukocytosis. 5. Atherosclerotic heart disease. 6. Degenerative joint disease. 7. Benign prostatic hypertrophy. 8. Gastroesophageal reflux disease. 9. Restless leg syndrome. BRIEF STATEMENT FOR THE REASON FOR ADMISSION: A 77-year-old [place] male sent to Emergency Room for abdominal pain, nausea and vomiting. After being evaluated, the patient was admitted in the hospital for the treatment. Please refer to my H and P for further information. HOSPITAL COURSE: The patient was admitted to Med/Surg floor. The patient was kept n.p.o., IV fluid, IV antibiotic along with proton pump inhibitor was started. Symptomatic therapy was provided as well. GI consult and HIDA scan was also ordered. The patient was seen by agency director. The patient did have MRCP, which was unremarkable. The patient did have followup lab, which continues to show improvement of his liver function along with resolution of the lipase as well. The patient was placed on p.o. clear liquid diet, which was advanced to as tolerated as well. The patient tolerated p.o. well. The patient did have microcytic hypochromic anemia, which I decided to have workup to be done as an outpatient as well. The patient did have electrolyte imbalance, which was corrected as well. The patient is discharged back to [facility] in stable condition where the patient will be followed by myself. At the time of discharge, all of his meds were reconciled. JOB# [id number]
[2017-06-22 21:39] LABS: A1C % 6.5 % (4.0-6.0)
--- NOTE | 2017-06-23 06:44 | Progress Notes ---
DATE: 06/22/2017 SUBJECTIVE: The patient seen and examined. The patient is complaining of itchiness. The patient otherwise denies any chest pain, shortness of breath, palpitation, or dizziness. The patient is able to eat fairly p.o. well. OBJECTIVE: On today's exam; VITAL SIGNS: Reviewed. HEENT: Poor dentition. NECK: Supple, no JVD. HEART: Regular, no murmur. CHEST AND LUNGS: Equal in expansion, no wheezing, no crackles. ABDOMEN: Soft, no guarding or rigidity. Bowel sounds are present. No palpable mass. EXTREMITIES: No edema. NEUROLOGIC: Nonfocal. LABORATORY DATA: The patient's lipase is reported normal in ED, which was done yesterday. Potassium 3.4, AST, ALT is 64 and 108, which was downgoing trend. Hemoglobin of 10.0 with a platelet count of 161. CLINICAL IMPRESSION: 1. Acute pancreatitis, resolved. 2. Abnormal liver function tests, improving. 3. Pneumobilia, MRCP is unremarkable. 4. Degenerative joint disease. 5. Benign prostatic hypertrophy. 6. Debility. 7. Itching probably from Zosyn. PLAN: The patient is to discontinue antibiotic for now. I discontinued IV fluid as well. Discharged to [facility]. The patient will be placed on a PT/OT as well as a continuation of other medication. The patient will be followed by myself. JOB# [id number]
[2017-06-25 10:17] LABS: ANTI-NUCLEAR AB SCREEN Negative
== END 2017-06-22 15:15 | DRG 444 ==
LOC: ER 16:37 → MSI 21:38
PROVIDERS: ADMIT Internal Medicine; ATTEND Internal Medicine
DX: K83.8 Other specified diseases of biliary tract (principal); K85.90 Acute pancreatitis without necrosis or infection, unspecified; K56.41 Fecal impaction; M19.90 Unspecified osteoarthritis, unspecified site; N40.0 Benign prostatic hyperplasia without lower urinary tract symptoms; G25.81 Restless legs syndrome; K21.9 Gastro-esophageal reflux disease without esophagitis; K29.70 Gastritis, unspecified, without bleeding; K75.9 Inflammatory liver disease, unspecified; K81.9 Cholecystitis, unspecified; F41.9 Anxiety disorder, unspecified; E87.6 Hypokalemia; G89.4 Chronic pain syndrome; D50.9 Iron deficiency anemia, unspecified; I25.10 Atherosclerotic heart disease of native coronary artery without angina pectoris; E78.5 Hyperlipidemia, unspecified; F31.9 Bipolar disorder, unspecified; I10 Essential (primary) hypertension; K57.90 Diverticulosis of intestine, part unspecified, without perforation or abscess without bleeding
CPT/HCPCS: 36415-UA; 71045-TC; 76700-TC; 78226-TC; 80053-TC; 80061-TC; 80320-TC; 81001-TC; 82150-TC; 82550-TC; 83036-90; 83540-90; 83550-90; 83605; 83690-TC; 83880-TC; 84484-TC; 85007-TC; 85025-TC; 85027-TC; 85610-TC; 85730-TC; 86038-90; 90799; 93005; 94760; A9537; C9113; J0696; J2543; J7030; Z7610; Z7610-TC